=== PATIENT | female | born 1990 | race Caucasian/White ===

== ENCOUNTER 2018-02-04 08:45 | Emergency (ER) | END 2018-02-04 11:30 | disposition home or self-care (01) ==

== ENCOUNTER 2018-05-14 10:44 | Emergency (ER) | END 2018-05-14 13:25 | disposition home or self-care (01) ==

== ENCOUNTER 2019-01-02 08:30 | Emergency (ER) | payer SELFPAY ==
[~2019-01-02] VITALS: Ht 170.2 cm; Wt 94.0 kg
[~2019-01-02 08:30] MED LIST: ACET500C5 PO; BENZ-6 PO; CEPH-443 PO; CETI10CA PO
[2019-01-02 08:32] VITALS: BP 123/82; PULSE 89; RESP 18; Ht 170.2 cm; Wt 94.0 kg
[2019-01-02] MEDS ORDERED: D-ME473S2 PO (09:44)
[2019-01-02] MEDS ORDERED: AZIT250T PO (09:44)
--- NOTE | 2019-01-02 10:26 | ERD ---
ER Documentation Chief Complaint Chief Complaint pt is bib family with c/o sore throat, cough since yesterday HPI 28-year-old female with no reported past medical surgical history who presents with complaint of sore throat, dry cough, ear pain and subjective fevers yesterday. Has had rhinorrhea as well. Patient is afebrile at the time presentation. Patient reports positive sick contacts with child that other adults with similar symptoms over the last few weeks. She otherwise denies chest of breath or dyspnea, nausea, vomiting, diarrhea, abdominal pain, urinary symptoms. At time of evaluation patient is nontoxic-appearing with a reassuring examination. ROS All systems reviewed and are negative except as per history of present illness. Medications Home Meds Active Scripts Azithromycin* (Zithromax*) 250 Mg Tablet, 250 MG PO .ZPACK DIRECTED, #6 TAB TAKE 500 MG (2 TABS) THE FIRST DAY THEN 250 MG (1 TAB) DAYS 2-5 Prov:LIYA BEE PA-C 01/02/19 Dextromethorphan Hb-Promethazine Hcl* (Promethazine DM* Syrup) 473 Ml Syrup, 5 ML PO Q6 PRN for COUGH for 7 Days, ML Prov:LIYA BEEC 01/02/19 Acetaminophen* (Tylophen*) 500 Mg Capsule, 1 CAP PO Q6H PRN for PAIN AND OR ELEVATED TEMP, #30 CAP Prov:OTF BARNHARTC 05/14/18 Cetirizine Hcl* (Zyrtec*) 10 Mg Capsule, 10 MG PO DAILY, #30 TAB.CHEW Prov:OTF BARNHARTC 05/14/18 Benzonatate* (Tessalon Perle*) 100 Mg Capsule, 100 MG PO Q8H PRN for COUGH, #30 CAP Prov:OTF BARNHART PA-C 05/14/18 Cephalexin* (Keflex*) 500 Mg Capsule, 500 MG PO QID for 5 Days, CAP Prov:JANE NORMAN PA-C 02/04/18 Allergies Allergies: Coded Allergies: No Known Allergy (Unverified , 01/02/19) PMhx/Soc Medical and Surgical Hx: pt denies Medical Hx, pt denies Surgical Hx Hx Alcohol Use: No Hx Substance Use: Yes (WEED) Hx Tobacco Use: No Smoking Status: Never smoker FmHx Family History: No diabetes, No coronary disease, No other Physical Exam Vitals Vital Signs Date Temp Pulse Resp B/P (MAP) Pulse Ox O2 O2 Flow FiO2 Time Delivery Rate 01/02/19 97.9 89 18 123/82 98 08:32 (96) Physical Exam Const: No acute distress Head: Atraumatic Eyes: Normal Conjunctiva ENT: Normal External Ears, Nose and Mouth. Posterior oropharynx with some mild erythema Neck: Full range of motion. No meningismus. Resp: Clear to auscultation bilaterally Cardio: Regular rate and rhythm, no murmurs Abd: Soft, non tender, non distended. Normal bowel sounds Skin: No petechiae or rashes Back: No midline or flank tenderness Ext: No cyanosis, or edema Neur: Awake and alert Psych: Normal Mood and Affect Procedures/MDM 28-year-old female presents with subjective fevers, dry cough, sore throat and ear pain. The patient's clinical presentation is very consistent with an acute viral syndrome. No evidence of pneumonia. No evidence of serious sinusitis or mastoiditis. Able to tolerate PO. Unlikely [employer]PRESENT[employer]IVE, RPA, Ludwigs, epiglottitis, acute HIV, or EBV. Centor negative for strep. Plan to DC home with prompt outpatient PCP follow up; return precautions discussed The patient is well-appearing without respiratory distress. Normal oxygen saturation. X-ray imaging not indicated. No indication for Tamiflu. The patient does not exhibit any clinical signs or symptoms concerning for serious bacterial infection or systemic illness. Based on history and clinical exam findings the patient does not appear to have evidence of pneumonia, strep pharyngitis, urinary tract infection, bacteremia, sepsis, or meningitis. For these reasons I do not believe it is necessary to obtain laboratory testing or diagnostic imaging. I believe it would be appropriate for symptom control, and close outpatient primary care follow-up. Patient provided with Rx for Z-Nghia per her request, patient given instructions to only begin antibiotics if symptoms do not improve in the next 2 to 3 days, patient expressing understanding We discussed follow up with the patient's primary care doctor within 24 to 48 hours as needed. We also discussed return to the emergency room for worsening symptoms or worsening condition. DISPOSITION PLAN: We discussed follow up with the patient's primary care doctor within 24 to 48 hours. Patient counseled regarding my diagnostic impression and care plan. Prior to discharge all questions answered. Pt agrees with treatment plan and understands strict return precautions. Precautionary instructions provided including instructions to return to the ER if not improving or for any worsening or changing symptoms or concerns. Disclaimer: Inadvertent spelling and grammatical errors are likely due to EHR/dictation software use and do not reflect on the overall quality of patient care. Also, please note that the electronic time recorded on this note does not necessarily reflect the actual time of the patient encounter. Departure Diagnosis: Primary Impression: Cough Additional Impression: Sore throat Condition: Stable Patient Instructions: Self-Care for Sore Throats, Cough, Chronic, Uncertain Cause, (Adult) Referrals: [facility] YOU HAVE RECEIVED A MEDICAL SCREENING EXAM AND THE RESULTS INDICATE THAT YOU DO NOT HAVE A CONDITION THAT REQUIRES URGENT TREATMENT IN THE EMERGENCY DEPARTMENT. FURTHER EVALUATION AND TREATMENT OF YOUR CONDITION CAN WAIT UNTIL YOU ARE SEEN IN YOUR DOCTORS OFFICE WITHIN THE NEXT 1-2 DAYS. IT IS YOUR RESPONSIBILITY TO MAKE AN APPOINTMENT FOR FOLOW-UP CARE. IF YOU HAVE A PRIMARY DOCTOR --you should call your primary doctor and schedule an appointment IF YOU DO NOT HAVE A PRIMARY DOCTOR YOU CAN CALL OUR PHYSICIAN REFERRAL HOTLINE AT IF YOU CAN NOT AFFORD TO SEE A PHYSICIAN YOU CAN CHOSE FROM THE FOLLOWING [facility] [address] [facility] [facility] [address] [facility] [address] [facility] [address] [facility] [facility] [address] [facility] [facility] [address] [facility] [facility]. [address] Additional Instructions: Call your primary care doctor TOMORROW for an appointment during the next 2-3 days.See the doctor sooner or return here if your condition worsens before your appointment time. Only take antibiotic if your symptoms do not improve in the next 2 to 3 days. If you begin antibiotics take them to the completion. LIYA BEE PA-C January 02, 2019 10:26
== END 2019-01-02 10:38 | disposition home or self-care (01) ==
LOC: FTE 08:30
DX: J02.9 Acute pharyngitis, unspecified (principal)
CPT/HCPCS: 99283